=== PATIENT | female | born 1955 | race Caucasian/White ===

== ENCOUNTER 2016-12-24 18:51 | Emergency (ER) | payer BC, OTHER ==
[~2016-12-24] VITALS: Ht 160 cm; Wt 79.4 kg
[~2016-12-24 18:51] MED LIST: B/P MEDS
[2016-12-24 19:00] VITALS: BP_SYST 136
--- NOTE | 2016-12-24 19:00 | NUR ---
PT TO ER WAITING ROOM AWAITING AVAILABLE BED.
--- NOTE | 2016-12-24 20:00 | NUR ---
Patient to ER bed 02 to gown for evaluation. Side rails up.
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
--- NOTE | 2016-12-24 20:15 | NUR ---
ER Dr. Cano at bedside examining patient.
[2016-12-24] MEDS ORDERED: IBUPROFEN 600 MG TABLET PO ONE (22:00)
[2016-12-24 22:25] VITALS: BP_SYST 129
--- NOTE | 2016-12-24 22:25 | NUR ---
Patient given written and verbal discharge instructions and verbalizes understanding. ER MD discussed with patient the results and treatment provided. Patient in stable condition. ID arm band removed. Rx of motrin given. Patient educated on pain management and to follow up with PMD. Pain Scale 2/10. Opportunity for questions provided and answered.
== END 2016-12-24 22:25 | disposition home or self-care (01) ==
LOC: SED 18:51
DX: S23.3XXA Sprain of ligaments of thoracic spine, initial encounter (principal); S13.4XXA Sprain of ligaments of cervical spine, initial encounter; I10 Essential (primary) hypertension; V89.2XXA Person injured in unspecified motor-vehicle accident, traffic, initial encounter; Y93.89 Activity, other specified; Y99.8 Other external cause status; Y92.89 Other specified places as the place of occurrence of the external cause
CPT/HCPCS: 36415; 71250-TC; 72125-TC; 84484; 99285